=== PATIENT | female | born 1935 | race Caucasian/White ===

== ENCOUNTER 2022-08-04 09:44 | Inpatient (IN) | payer MEDICARE, MEDICAID ==
[~2022-08-04] VITALS: Ht 160 cm; Wt 70.8 kg
[2022-08-04 10:11] LABS: EOSINOPHILS % 0.8 % (0.0-5.0); HEMATOCRIT. 41.3 % (36.0-48.0); HEMOGLOBIN. 13.6 g/dL (12.0-16.0); LYMPHOCYTES % 25.6 % (20.0-50.0); MEAN CORPUSCULAR HEMOGLOBIN 26.9 pg (28.0-32.0); MEAN CORPUSCULAR VOLUME 81.5 fL (81.0-99.0); MEAN PLATELET VOLUME 7.9 fl (7.4-10.4); MONOCYTES % 5.2 % (2.0-8.0); NEUTROPHILS % 67.4 % (40.0-76.0); PLATELET 494 x1000/uL (130-400); RED BLOOD CELL COUNT 5.07 mill/uL (4.2-5.4)
[2022-08-04 10:21] LABS: CHLORIDE 100 mEq/L (98-107)
[2022-08-04 10:31] LABS: ETHANOL BLOOD < 10 mg/dL
[2022-08-04] MEDS ORDERED: ASPIRIN 81MG TABLET PO ONE (11:15)
[2022-08-04] MEDS ORDERED: ATORVASTATIN CALCIUM 40MG TABLET PO SCH (11:15)
[2022-08-04] MEDS ORDERED: IOHEXOL-350 100 ML BOTTLE ONE (11:52)
[2022-08-04] MEDS: AMLODIPINE 10MG TABLET PO SCH ×2 (14:00→14:59)
[2022-08-04] MEDS ORDERED: NALOXONE HCL 0.4MG/ML VIAL IV PRN (14:00)
[2022-08-04] MEDS ORDERED: MAGNESIUM/ALUMINUM HYDROXIDE/SIMETHICONE 30ML UDC PO PRN (14:00)
[2022-08-04] MEDS ORDERED: DOCUSATE SODIUM 100MG CAPSULE PO PRN (14:00)
[2022-08-04] MEDS ORDERED: GUAIFENESIN 200MG/10ML SUGAR FREE UDC PO PRN (14:00)
[2022-08-04] MEDS: ENOXAPARIN 30MG/0.3ML SYR SUBCUT SCH (14:26)
[2022-08-04 16:30] VITALS: BP 126/67
[2022-08-04 20:00] VITALS: BP 119/68
[2022-08-04] MEDS: ACETAMINOPHEN 325MG TABLET PO PRN (20:57)
[2022-08-05] VITALS (7 sets, daily range): BP systolic 90–120; BP diastolic 50–60
[2022-08-05] MEDS: TRAMADOL 50MG TABLET PO PRN ×2 (00:58→22:44)
[2022-08-05] MEDS: ONDANSETRON HCL 4MG/2ML INJ IV PRN (00:58)
[2022-08-05 07:10] LABS: BASOPHILS % 0.7 % (0.0-2.0); EOSINOPHILS % 1.4 % (0.0-5.0); HEMOGLOBIN. 11.3 g/dL (12.0-16.0); LYMPHOCYTES % 44.8 % (20.0-50.0); MEAN PLATELET VOLUME 8.1 fl (7.4-10.4); MONOCYTES % 7.4 % (2.0-8.0); NEUTROPHILS % 45.7 % (40.0-76.0); PLATELET 434 x1000/uL (130-400); RED BLOOD CELL COUNT 4.19 mill/uL (4.2-5.4); RED CELL DISTRIBUTION WIDTH 17.1 % (11.6-14.6)
[2022-08-05] MEDS: ASPIRIN 81MG EC TABLET PO SCH (08:37)
[2022-08-05] MEDS: ENOXAPARIN 30MG/0.3ML SYR SUBCUT SCH (08:37)
[2022-08-05] MEDS: AMLODIPINE 10MG TABLET PO SCH (08:40)
[2022-08-05 08:44] LABS: CHLORIDE 103 mEq/L (98-107)
[2022-08-05 10:57] LABS: VITAMIN B12 SERUM 498 pg/mL (211-911)
[2022-08-05] MEDS: ATORVASTATIN CALCIUM 40MG TABLET PO SCH (22:24)
[2022-08-06] VITALS (7 sets, daily range): BP systolic 103–146; BP diastolic 51–87
[2022-08-06] MEDS ORDERED: THYROID 60MG TABLET PO SCH (07:10)
[2022-08-06] MEDS: ASPIRIN 81MG EC TABLET PO SCH (08:09)
[2022-08-06] MEDS: AMLODIPINE 10MG TABLET PO SCH (08:11)
[2022-08-06] MEDS: ENOXAPARIN 30MG/0.3ML SYR SUBCUT SCH (08:12)
[2022-08-06] MEDS: LEVOTHYROXINE SODIUM 25MCG TABLET PO SCH (08:12)
[2022-08-06] MEDS ORDERED: MELATONIN 3MG TABLET PO NR (20:00)
[2022-08-06] MEDS ORDERED: NON FORMULARY PATIENT HOME MED XX SCH (20:00)
[2022-08-06] MEDS: TRAMADOL 50MG TABLET PO PRN (20:04)
[2022-08-06] MEDS: ATORVASTATIN CALCIUM 40MG TABLET PO SCH (20:04)
[2022-08-07] VITALS: BP 113/57
[2022-08-07] MEDS: ACETAMINOPHEN 325MG TABLET PO PRN ×2 (02:09→13:54)
[2022-08-07] MEDS: MEMANTINE HCL 5MG TABLET PO SCH ×2 (02:11→08:27)
[2022-08-07 04:00] VITALS: BP 152/69
[2022-08-07] MEDS: TRAMADOL 50MG TABLET PO PRN ×2 (05:10→07:00)
[2022-08-07] MEDS: LEVOTHYROXINE SODIUM 25MCG TABLET PO SCH (05:44)
[2022-08-07 08:00] VITALS: BP 121/55
[2022-08-07] MEDS: ASPIRIN 81MG EC TABLET PO SCH (08:27)
[2022-08-07] MEDS: AMLODIPINE 10MG TABLET PO SCH (08:27)
[2022-08-07] MEDS: ENOXAPARIN 30MG/0.3ML SYR SUBCUT SCH (08:28)
[2022-08-07] MEDS: ONDANSETRON HCL 4MG/2ML INJ IV PRN (11:23)
[2022-08-07 12:01] VITALS: BP 116/54
[2022-08-07 16:00] VITALS: BP 122/58
== END 2022-08-07 16:00 | DRG 47 ==
LOC: ER 09:44 → 8WST 14:46 → EDBEDREQSVC 14:50 → EDBEDREQ 14:50 → EDBEDREQTM 14:50
PROVIDERS: ADMIT Hospitalist; ATTEND Hospitalist
PROC: 4A00X4Z Measurement of Central Nervous Electrical Activity, External Approach (ICD-10-PCS; principal; 2022-08-05)
DX: G45.9 Transient cerebral ischemic attack, unspecified (principal); G93.40 Encephalopathy, unspecified; I24.8 Other forms of acute ischemic heart disease; E87.1 Hypo-osmolality and hyponatremia; F03.90 Unspecified dementia, unspecified severity, without behavioral disturbance, psychotic disturbance, mood disturbance, and anxiety; I10 Essential (primary) hypertension; Z20.822 Contact with and (suspected) exposure to COVID-19; J44.9 Chronic obstructive pulmonary disease, unspecified; D32.9 Benign neoplasm of meninges, unspecified; E78.5 Hyperlipidemia, unspecified; E03.8 Other specified hypothyroidism; Z86.73 Personal history of transient ischemic attack (TIA), and cerebral infarction without residual deficits
CPT/HCPCS: 36415; 70496; 70498; 70551; 71045; 80053; 80061; 80320; 82607; 83605; 83880; 84439; 84443; 84484; 85025; 87426; 92610; 93005; 93970; 95816; 97162; 97164; 97165; 99291; J1650; J2405; Q9967; G0480